=== PATIENT | male | born 1985 | race Caucasian/White ===

== ENCOUNTER 2024-01-07 20:31 | Inpatient (IN) | payer MEDICAID ==
[~2024-01-07] VITALS: Ht 172.7 cm; Wt 100.0 kg
[2024-01-07] MEDS: CEFTRIAXONE 2GM/50ML 50 ML IV ONE (01:30)
[2024-01-07 20:34] VITALS: O2SAT 100
[2024-01-07 21:31] LABS: CLARITY URINE CLEAR (CLEAR); COLOR URINE DARK YELLOW (YELLOW); GLUCOSE URINE 3+ (NEGATIVE); KETONES URINE TRACE (NEGATIVE); LEUKOCYTE ESTERASE URINE NEGATIVE (NEGATIVE); NITRITE URINE NEGATIVE (NEGATIVE); OCCULT BLOOD URINE 3+ (NEGATIVE); PROTEIN URINE 2+ (NEGATIVE); SPECIFIC GRAVITY URINE 1.027 (1.005-1.030)
[2024-01-07 21:34] LABS: CHLORIDE 82 mEq/L (98-107); POTASSIUM 3.7 mEq/L (3.5-5.1)
[2024-01-07 21:35] LABS: CALCIUM 7.6 mg/dL (8.7-10.4); CARBON DIOXIDE 23 mEq/L (21-32)
[2024-01-07 21:40] LABS: CREATININE 0.8 mg/dL (0.6-1.3); ETHANOL BLOOD 300 mg/dL (<10); GLUCOSE 264 mg/dL (70-105); UREA NITROGEN BLOOD 8 mg/dL (9-23)
[2024-01-07 21:42] LABS: ALANINE AMINOTRANSFERASE 239 IU/L (10-49); ALBUMIN 3.5 g/dL (3.2-4.8); ASPARTATE AMINOTRANSFERASE 738 IU/L (<34); BILIRUBIN DIRECT 2.4 mg/dL (<=3.0); BILIRUBIN TOTAL 4.4 mg/dL (0.1-1.0); PROTEIN TOTAL 7.4 g/dL (6.0-8.3)
[2024-01-07 21:43] LABS: INR 1.3; PROTHROMBIN TIME 13.8 sec (9.6-11.0)
[2024-01-07 21:52] LABS: SODIUM 116 mEq/L (136-145)
[2024-01-07 22:06] LABS: BASOPHILS % 0.4 % (0.0-2.0); EOSINOPHILS % 0.1 % (0.0-5.0); MEAN CORPUSCULAR HGB CONC 34.3 g/dL (31.0-37.0); MEAN CORPUSCULAR VOLUME 93.4 fL (80.0-94.0); MEAN PLATELET VOLUME 8.4 fl (7.4-10.4); MONOCYTES % 8.3 % (2.0-8.0); NEUTROPHILS % 83.2 % (40.0-76.0); RED BLOOD CELL COUNT 3.42 mill/uL (4.7-6.1); RED CELL DISTRIBUTION WIDTH 13.4 % (11.6-14.6); WHITE BLOOD COUNT 11.3 x1000/uL (4.5-11.0)
[2024-01-07 22:12] LABS: DIFFERENTIAL COMMENT 1
[2024-01-07] MEDS ORDERED: SODIUM CHLORIDE 0.9% 1,000 ML IV ONE (22:15)
[2024-01-07] MEDS ORDERED: LORAZEPAM 2MG/ML INJ IV ONE (22:15)
[2024-01-07 22:23] LABS: AMMONIA 58 uMol/L (<32)
[2024-01-07 22:31] LABS: BACTERIA URINE TRACE; HYALINE CASTS URINE 0-5 /lpf; SQUAMOUS EPITHELIAL CELL URINE FEW /lpf (RARE/1+); WBC URINE 0-2 /hpf (0-2)
[2024-01-07] MEDS: FOLIC ACID 1 MG, THIAMINE HCL 100 MG, MVI, ADULT NO.1 10 ML in DEXTROSE 5% WATER 1,000 ML IV ONE (23:45)
[2024-01-07] MEDS: SODIUM CHLORIDE 0.9% 1,000 ML IV ONE (23:45)
[2024-01-07 23:53] LABS: INR 1.2; PARTIAL THROMBOPLASTIN TIME 28.5 sec (23.4-31.0); PROTHROMBIN TIME 13.5 sec (9.6-11.0)
[2024-01-08] MEDS: PANTOPRAZOLE SODIUM 40 MG/VIAL IV ONE (00:13)
[2024-01-08] MEDS: LORAZEPAM 2MG/ML INJ IV NR (00:40)
[2024-01-08] MEDS: LORAZEPAM 2MG/ML INJ IV ONE (01:13)
[2024-01-08] MEDS: MAGNESIUM 2 G PREMIX 50 ML IV ONE (02:31)
[2024-01-08 06:25] VITALS: O2SAT 99
[2024-01-08] MEDS ORDERED: ACETAMINOPHEN 325MG TABLET PO PRN ×2 (06:30)
[2024-01-08] MEDS ORDERED: ZOLPIDEM TARTRATE 5MG TABLET PO PRN (06:30)
[2024-01-08] MEDS ORDERED: MAGNESIUM/ALUMINUM HYDROXIDE/SIMETHICONE 30ML UDC PO PRN (06:30)
[2024-01-08] MEDS ORDERED: CLONIDINE 0.1MG TABLET PO PRN (06:30)
[2024-01-08] MEDS ORDERED: DOCUSATE SODIUM 100MG CAPSULE PO PRN (06:30)
[2024-01-08] MEDS ORDERED: GUAIFENESIN 200MG/10ML SUGAR FREE UDC PO PRN (06:30)
[2024-01-08] MEDS ORDERED: DEXTROSE 50% WATER 50ML SYRINGE IV PRN (06:30)
[2024-01-08] MEDS ORDERED: IPRATROPIUM/ALBUTEROL 0.5-3(2.5)MG/3ML NEB NEB PRN (06:30)
[2024-01-08] MEDS ORDERED: NITROGLYCERIN 0.4MG TABLET SL SL PRN (06:30)
[2024-01-08 07:11] LABS: CHLORIDE 86 mEq/L (98-107); POTASSIUM 3.4 mEq/L (3.5-5.1)
[2024-01-08 07:12] LABS: CALCIUM 7.5 mg/dL (8.7-10.4); CARBON DIOXIDE 25 mEq/L (21-32)
[2024-01-08 07:17] LABS: CREATININE 0.6 mg/dL (0.6-1.3); GLUCOSE 174 mg/dL (70-105)
[2024-01-08 07:19] LABS: AMMONIA 47 uMol/L (<32); PHOSPHORUS 2.5 mg/dL (2.5-4.9)
[2024-01-08 07:22] LABS: THYROID STIMULATING HORMONE 1.57 uIU/mL (0.55-4.78)
[2024-01-08] MEDS: DEXT 5%/0.9% NACL 1,000 ML IV SCH (07:46)
[2024-01-08] MEDS: INSULIN LISPRO 100 UNITS/ML SUBCUT SCH (08:20)
[2024-01-08 08:21] LABS: SODIUM 119 mEq/L (136-145); UREA NITROGEN BLOOD < 5 mg/dL (9-23)
[2024-01-08] MEDS: LACTULOSE 20G/30ML UDC PO SCH (08:52)
[2024-01-08] MEDS: FAMOTIDINE 20MG TABLET PO SCH (09:19)
[2024-01-08] MEDS: BLOOD SUGAR DIAGNOSTIC STRIP TEST SCH (09:19)
[2024-01-08] MEDS: ONDANSETRON HCL 4MG/2ML INJ IV PRN (11:01)
[2024-01-08] MEDS: KETOROLAC 15MG/ML VIAL IV PRN (11:02)
[2024-01-08 15:51] VITALS: BP 115/62; PULSE 128; RESP 24; TEMP 36.89184
[2024-01-08] MEDS: CHLORDIAZEPOXIDE 5 MG CAPSULE PO NR (16:19)
[2024-01-08 22:42] LABS: PLATELET 35 x1000/uL (130-400)
== END 2024-01-08 16:29 | disposition home or self-care (01) | DRG 426 ==
LOC: ER 20:31 → MICUSO 22:52 → EDBEDREQSVC 01-08 08:04 → 5WST 01-08 09:02
PROVIDERS: ADMIT Internal Medicine; ATTEND Internal Medicine
PROC: 30233R1 Transfusion of Nonautologous Platelets into Peripheral Vein, Percutaneous Approach (ICD-10-PCS; principal; 2024-01-08)
DX: E87.1 Hypo-osmolality and hyponatremia (principal); G93.41 Metabolic encephalopathy; F10.221 Alcohol dependence with intoxication delirium; K74.60 Unspecified cirrhosis of liver; D64.9 Anemia, unspecified; E83.51 Hypocalcemia; R74.01 Elevation of levels of liver transaminase levels
CPT/HCPCS: 36415; 76700; 80048; 80076; 80320; 81003; 82140; 82962; 83036; 83735; 83930; 84100; 84443; 85025; 86850; 86900; 93970; 99291; J0696; J1885; J2060; J2405; J2470; J3411; J3475; J3490; J7030; J7070; P9034; G0480